=== PATIENT | male | born 1960 | race Caucasian/White ===

== ENCOUNTER 2017-02-13 22:11 | Inpatient (IN) | payer SELFPAY ==
[~2017-02-13] VITALS: Ht 175.3 cm; Wt 62.5 kg
[~2017-02-13 22:11] MED LIST: ADVAIR HFA120 INHALA IH; ADVIL,NUPRIN,M200 MG PO; ALBUTEROL INHALER; ALUPENT14 GM; AMLODIPINE BESYL5 MG PO; CEFTIN500 MG PO; COUMADIN1 MG PO; DOXYCYCLINE HY100 M3 PO; LEVAQUIN750 MG PO; MOTRIN800 MG PO; PREDNISONE10 MG PO; PREDNISONE20 MG PO; PREDNISONE5 MG PO; PREDNISONE50 MG PO; PROAIR HFA8.5 GM IH; SINUS 12-HOUR120 MG PO; SPIRIVA RESPIMAT4 GM IH; TYLENOL WITH C1 EACH PO; VENTOLIN HFA18 GM IH; ZITHROMAX Z-PA250 MG PO; ZITHROMAX250 MG PO
[2017-02-13 22:54] LABS: HEMATOCRIT 42.7 % (38.0-50.0); MCH 30.4 PG (29.0-34.0); MCHC 33.7 G/DL (30.0-36.0); MCV 90.3 FL (86-99); PLATELET COUNT 243 K/uL (156-360); RBC DIS.WIDTH-SD 46.5 % (39-53); RED BLOOD COUNT 4.73 M/uL (4.00-5.50); WHITE BLOOD COUNT 10.2 K/uL (4.1-10.2)
[2017-02-13 22:55] LABS: CARBON DIOXIDE (BICARBONATE) 25.2 MEQ/L (20-31)
[2017-02-13 23:07] LABS: CHLORIDE 102 mEq/L (99-109); POTASSIUM 4.2 mEq/L (3.7-5.4); SODIUM 133 mEq/L (136-147)
[2017-02-13 23:09] LABS: GLUCOSE 103 mg/dL (70-99); INTER. NORMALIZED RATIO 1.2; PTT 27.6 (25-32)
[2017-02-13 23:10] LABS: ANION GAP 9 MEQ/L (2-14)
[2017-02-13 23:11] LABS: TOTAL BILIRUBIN 0.5 mg/dL (0.0-1.0)
[2017-02-13 23:12] LABS: ALKALINE PHOSPHATASE 102 IU/L (3-129)
[2017-02-13 23:13] LABS: GFR ESTIMATE (CALCULATED) > 59 mL/min/
[2017-02-13 23:14] LABS: UREA NITROGEN (BUN) 16 mg/dL (9-23)
[2017-02-13 23:16] LABS: D-DIMER ELISA > 4.00 mg/L FEU (< 0.57); LIPASE 23 U/L (1.0-51.0); TROP-I INTERPRETATION NEGATIVE; TROPONIN-I < 0.01 ng/mL (0.0-0.30)
[2017-02-14] MEDS ORDERED: SPIRIVA RESPIMAT4 GM IH (01:15)
[2017-02-14] MEDS ORDERED: SYMBICORT60 INHALAT IH (01:15)
[2017-02-14 11:31] VITALS: BP 127/80
[2017-02-14 15:43] VITALS: BP 119/68
[2017-02-14 19:36] VITALS: BP 128/66
[2017-02-15 00:06] VITALS: BP 130/67
[2017-02-15 03:22] VITALS: BP 118/74
[2017-02-15 06:02] LABS: EOSINOPHIL (%) 0 % (0-5); IMMATURE GRANULOCYTE (%) 0.4 % (0.0-0.7); INSTRUMENT ABS NEUTROPHIL CT 6.9 K/uL; LYMPHOCYTE COUNT 1.6 K/uL (1.0-2.8); MCH 30.6 PG (29.0-34.0); MCHC 33.3 G/DL (30.0-36.0); MCV 91.8 FL (86-99); MEAN PLAT.VOLUME 9.5 uM^3 (9.0-12.4); MONOCYTE (%) 7.7 % (3-12); MONOCYTE COUNT 0.7 K/uL (0-0.8); NEUTROPHIL (%) 74.5 % (45-76); NEUTROPHIL COUNT 6.9 K/uL (1.8-6.4); PLATELET COUNT 263 K/uL (156-360); RBC DIS.WIDTH-CV 14.3 % (11.8-14.6); RBC DIS.WIDTH-SD 48.5 % (39-53); RED BLOOD COUNT 4.25 M/uL (4.00-5.50); WHITE BLOOD COUNT 9.3 K/uL (4.1-10.2)
[2017-02-15 06:22] LABS: ANION GAP 6 MEQ/L (2-14); CHLORIDE 106 MEQ/L (99-109); GFR ESTIMATE (CALCULATED) > 59 mL/min/; GLUCOSE 103 mg/dL (70-99); POTASSIUM 4.4 MEQ/L (3.7-5.4); SAMPLE HEMOLYSIS CHECK 0; SAMPLE ICTERIC CHECK 0; SAMPLE LIPEMIA CHECK 0; SODIUM 137 MEQ/L (136-147); UREA NITROGEN (BUN) 13 mg/dL (9-23)
[2017-02-15 07:42] LABS: INTERNAL CONTROL VALID? YES
[2017-02-15 08:07] VITALS: BP 125/71
[2017-02-15] MEDS ORDERED: LEVOFLOXACIN750 MG PO (11:34)
[2017-02-15] MEDS ORDERED: VENTOLIN HFA18 GM IH (11:34)
[2017-02-15] MEDS ORDERED: SPIRIVA RESPIMAT4 GM IH (11:34)
[2017-02-15] MEDS ORDERED: PREDNISONE20 MG PO (11:34)
[2017-02-15] MEDS ORDERED: SYMBICORT60 INHALAT IH (11:34)
[2017-02-15] MEDS ORDERED: PROVENTIL,2.5 MG/3 M IH (11:47)
[2017-02-15 12:48] VITALS: BP 144/88
== END 2017-02-15 13:25 | disposition home or self-care (01) | DRG 871 ==
LOC: EME → EDBD 22:11 → EME 22:11 → EDOF 02-14 02:55 → 5EAST 02-14 02:55
PROVIDERS: Emergency Medicine; Hospitalist
DX: A41.9 Sepsis, unspecified organism (principal); J69.0 Pneumonitis due to inhalation of food and vomit; J44.1 Chronic obstructive pulmonary disease with (acute) exacerbation; I10 Essential (primary) hypertension; J98.11 Atelectasis; F17.210 Nicotine dependence, cigarettes, uncomplicated; Z83.3 Family history of diabetes mellitus; Z80.0 Family history of malignant neoplasm of digestive organs
CPT/HCPCS: 71020; 71275; 80048; 80053; 82803; 83605; 83690; 83880; 84484; 85025; 85027; 85379; 85610; 85730; 87040; 87070; 87205; 87449; 93005; 94640; 94640 76; 99202; 99281; 99285; J1650; J1885; J1956; J2270; J2930; J7030; J7512

== ENCOUNTER 2017-03-13 17:49 | Inpatient (IN) | payer SELFPAY ==
[~2017-03-13] VITALS: Ht 175.3 cm; Wt 65.2 kg
[~2017-03-13 17:49] MED LIST changes: +LEVOFLOXACIN750 MG PO; +PROVENTIL,2.5 MG/3 M IH; +SYMBICORT60 INHALAT IH
[2017-03-13 18:42] LABS: EOSINOPHIL (%) 0.1 % (0-5); HEMATOCRIT 42.4 % (38.0-50.0); IMMATURE GRANULOCYTE (%) 0.3 % (0.0-0.7); INSTRUMENT ABS NEUTROPHIL CT 10.5 K/uL; MCH 30.8 PG (29.0-34.0); MCV 90.6 FL (86-99); MEAN PLAT.VOLUME 9.3 uM^3 (9.0-12.4); MONOCYTE (%) 7.3 % (3-12); NEUTROPHIL (%) 77.2 % (45-76); NEUTROPHIL COUNT 10.5 K/uL (1.8-6.4); PLATELET COUNT 238 K/uL (156-360); RBC DIS.WIDTH-CV 14.1 % (11.8-14.6); RBC DIS.WIDTH-SD 47.4 % (39-53); RED BLOOD COUNT 4.68 M/uL (4.00-5.50); WHITE BLOOD COUNT 13.6 K/uL (4.1-10.2)
[2017-03-13 19:12] LABS: D-DIMER ELISA 3.25 mg/L FEU (< 0.57)
[2017-03-13 19:24] LABS: CHLORIDE 103 mEq/L (99-109); POTASSIUM 3.8 mEq/L (3.7-5.4); SODIUM 134 mEq/L (136-147)
[2017-03-13 19:25] LABS: GLUCOSE 180 mg/dL (70-99)
[2017-03-13 19:27] LABS: ANION GAP 10 MEQ/L (2-14)
[2017-03-13 19:29] LABS: GFR ESTIMATE (CALCULATED) 56 mL/min/
[2017-03-13 19:30] LABS: UREA NITROGEN (BUN) 29 mg/dL (9-23)
[2017-03-13 19:31] LABS: TROP-I INTERPRETATION NEGATIVE; TROPONIN-I < 0.01 ng/mL (0.0-0.30)
[2017-03-13] MEDS ORDERED: ADVIL,NUPRIN,M200 MG PO (22:53)
[2017-03-13] MEDS ORDERED: PROVENTIL,2.5 MG/3 M IH (22:53)
[2017-03-14] VITALS (7 sets, daily range): BP systolic 103–132; BP diastolic 61–80
[2017-03-14 01:40] LABS: TROP-I INTERPRETATION NEGATIVE; TROPONIN-I < 0.01 ng/mL (0.0-0.30)
[2017-03-14 06:41] LABS: TROP-I INTERPRETATION NEGATIVE; TROPONIN-I < 0.01 ng/mL (0.0-0.30)
[2017-03-14 07:35] LABS: Estimated Average Glucose 128 mg/dL (70-123); HEMOGLOBIN A1c (GLYCOHEMOGLOB) 6.1 % HGB (Below 5.7)
[2017-03-14 09:16] LABS: POINT-OF-CARE METER ID UU14188625
[2017-03-14 12:41] LABS: POINT-OF-CARE METER ID UU14188625
[2017-03-14 21:12] LABS: POINT-OF-CARE METER ID UU14188625
[2017-03-15 03:29] VITALS: BP 105/63
[2017-03-15 07:07] LABS: HEMATOCRIT 40.2 % (38.0-50.0); MCH 31.3 PG (29.0-34.0); MCHC 34.3 G/DL (30.0-36.0); MCV 91.2 FL (86-99); PLATELET COUNT 279 K/uL (156-360); RBC DIS.WIDTH-SD 47.5 % (39-53); RED BLOOD COUNT 4.41 M/uL (4.00-5.50); WHITE BLOOD COUNT 12.6 K/uL (4.1-10.2)
[2017-03-15 07:31] LABS: ANION GAP 6 MEQ/L (2-14); CHLORIDE 108 MEQ/L (99-109); POTASSIUM 4.3 MEQ/L (3.7-5.4); SAMPLE HEMOLYSIS CHECK 0; SAMPLE ICTERIC CHECK 0; SAMPLE LIPEMIA CHECK 0; SODIUM 136 MEQ/L (136-147); UREA NITROGEN (BUN) 17 mg/dL (9-23)
[2017-03-15 07:33] LABS: GFR ESTIMATE (CALCULATED) > 59 mL/min/; GLUCOSE 109 mg/dL (70-99)
[2017-03-15 08:17] VITALS: BP 129/79
[2017-03-15 11:24] VITALS: BP 118/69
[2017-03-15 17:01] VITALS: BP 139/77
[2017-03-15 19:53] VITALS: BP 130/76
[2017-03-15 22:40] VITALS: BP 132/72
[2017-03-16 03:47] VITALS: BP 135/86
[2017-03-16 07:22] LABS: POINT-OF-CARE METER ID UU14174225
[2017-03-16 08:14] VITALS: BP 143/86
[2017-03-16 12:32] LABS: POINT-OF-CARE METER ID UU14188625
[2017-03-16 13:20] VITALS: BP 133/85
[2017-03-16] MEDS ORDERED: LEVAQUIN750 MG PO (14:45)
[2017-03-16] MEDS ORDERED: PREDNISONE10 MG PO (14:45)
[2017-03-16 18:17] LABS: POINT-OF-CARE METER ID UU14188625
== END 2017-03-16 19:02 | disposition home or self-care (01) | DRG 166 ==
LOC: EME 17:49 → 5SOUTH 23:29 → EDOF 23:29 → 5SOUTH 03-14 01:04
PROVIDERS: Hospitalist; Internal Medicine; Physician Assistant
PROC: 0B998ZX Drainage of Lingula Bronchus, Via Natural or Artificial Opening Endoscopic, Diagnostic (ICD-10-PCS; principal; 2017-03-16)
PROC: 0B9J8ZX Drainage of Left Lower Lung Lobe, Via Natural or Artificial Opening Endoscopic, Diagnostic (ICD-10-PCS; principal; 2017-03-16)
DX: J44.0 Chronic obstructive pulmonary disease with (acute) lower respiratory infection (principal); J15.9 Unspecified bacterial pneumonia; N17.9 Acute kidney failure, unspecified; R04.2 Hemoptysis; J98.11 Atelectasis; J44.1 Chronic obstructive pulmonary disease with (acute) exacerbation; I10 Essential (primary) hypertension; R09.02 Hypoxemia; F17.210 Nicotine dependence, cigarettes, uncomplicated; J98.4 Other disorders of lung; Z87.01 Personal history of pneumonia (recurrent); Z79.51 Long term (current) use of inhaled steroids; Z80.0 Family history of malignant neoplasm of digestive organs; Z83.3 Family history of diabetes mellitus
CPT/HCPCS: 71020; 71275; 80048; 80202; 82948; 83036; 83605; 84484; 85025; 85027; 85379; 87040; 87070; 87116; 87205; 87206; 87278; 88108; 93005; 93306; 94640; 94640 76; 94799; 99202; J0692; J0696; J1815; J1885; J2250; J2310; J2920; J2930; J3010; J3370; J7030; J7050

== ENCOUNTER 2017-03-31 09:40 | Emergency (ER) | payer OTHER ==
[2017-03-31 10:00] LABS: EOSINOPHIL COUNT 0.1 K/uL (0-0.3); HEMATOCRIT 44.1 % (38.0-50.0); IMMATURE GRANULOCYTE (%) 0.3 % (0.0-0.7); INSTRUMENT ABS NEUTROPHIL CT 3.4 K/uL; MCH 30.5 PG (29.0-34.0); MCHC 33.1 G/DL (30.0-36.0); MCV 92.3 FL (86-99); MEAN PLAT.VOLUME 9.1 uM^3 (9.0-12.4); MONOCYTE (%) 10.8 % (3-12); MONOCYTE COUNT 0.7 K/uL (0-0.8); NEUTROPHIL (%) 55.2 % (45-76); NEUTROPHIL COUNT 3.4 K/uL (1.8-6.4); PLATELET COUNT 276 K/uL (156-360); RBC DIS.WIDTH-CV 14.2 % (11.8-14.6); RBC DIS.WIDTH-SD 48.8 % (39-53); RED BLOOD COUNT 4.78 M/uL (4.00-5.50); WHITE BLOOD COUNT 6.2 K/uL (4.1-10.2)
[2017-03-31 10:10] LABS: AMYLASE 75 IU/L (1-118); CHLORIDE 104 mEq/L (99-109); POTASSIUM 4.3 mEq/L (3.7-5.4); SODIUM 137 mEq/L (136-147)
[2017-03-31 10:12] LABS: GLUCOSE 136 mg/dL (70-99)
[2017-03-31 10:13] LABS: ANION GAP 8 MEQ/L (2-14)
[2017-03-31 10:15] LABS: SERUM ETHYL ALCOHOL < 10 mg/dL
[2017-03-31 10:16] LABS: GFR ESTIMATE (CALCULATED) > 59 mL/min/
[2017-03-31 10:17] LABS: UREA NITROGEN (BUN) 17 mg/dL (9-23)
[2017-03-31 10:19] LABS: LIPASE 44 U/L (1.0-51.0)
[2017-03-31 11:15] LABS: ADD MIUA? NO; BILIRUBIN NEGATIVE; BLOOD NEGATIVE; COLOR YELLOW ((YELLOW)); GLUCOSE (STRIP) NEGATIVE; KETONES NEGATIVE; LEUKOCYTES NEGATIVE; NITRITE NEGATIVE; PROTEIN (STRIP) NEGATIVE; SPECIFIC GRAVITY 1.014 (1.000-1.030); UCUL ADDED? NO; UROBILINOGEN 0.2 MG/DL (0.2-1.0)
[2017-03-31] MEDS ORDERED: ULTRAM50 MG PO (11:19)
[2017-03-31 11:37] LABS: AMPHETAMINE NEGATIVE (500 ng/mL); BARBITURATES NEGATIVE (200 ng/mL); BENZODIAZEPINES NEGATIVE (150 ng/mL); COCAINE NEGATIVE (150 ng/mL); INTERNAL CONTROLS VALID? YES; METHADONE NEGATIVE (200 ng/mL); METHAMPHETAMINE NEGATIVE (500 ng/mL); OPIATES (MORPHINE) NEGATIVE (100 ng/mL); OXYCODONE NEGATIVE (100 ng/mL); PHENCYCLIDINE NEGATIVE (25 ng/mL); PROPOXYPHENE NEGATIVE (300 ng/mL); THC CANNABINOIDS NEGATIVE (50 ng/mL); TRICYCLIC ANTIDEPRESSANTS NEGATIVE (300 ng/mL)
== END 2017-03-31 11:40 | disposition home or self-care (01) ==
LOC: TRA
PROVIDERS: Emergency Medicine
DX: S16.1XXA Strain of muscle, fascia and tendon at neck level, initial encounter (principal); V64.5XXA Driver of heavy transport vehicle injured in collision with heavy transport vehicle or bus in traffic accident, initial encounter; Z88.0 Allergy status to penicillin
CPT/HCPCS: 72040; 73030; 80048; 81003; 82150; 83690; 85025; 86900; 86901; 99281; 99285; G0480

== ENCOUNTER → 2017-05-19 | Outpatient (CLI) | payer SELFPAY ==
[~2017-05-19] MED LIST changes: +ULTRAM50 MG PO
== END | disposition home or self-care (01) ==
LOC: RAD 10:44
DX: J18.9 Pneumonia, unspecified organism (principal)
CPT/HCPCS: 71020

== ENCOUNTER 2017-08-28 22:47 | Emergency (ER) | payer SELFPAY ==
[~2017-08-28] VITALS: Ht 175.3 cm; Wt 64.6 kg
[2017-08-29] MEDS ORDERED: DOXYCYCLINE MO100 MG PO (01:33)
[2017-08-29] MEDS ORDERED: FIORICET 50-301 EAC1 PO (01:33)
[2017-08-29] MEDS ORDERED: TAMIFLU75 MG PO (01:33)
[2017-08-29 02:17] VITALS: BP 144/85
== END 2017-08-29 02:21 | disposition home or self-care (01) ==
LOC: EME 22:47 → RME 22:47
PROVIDERS: Physician Assistant
DX: J18.9 Pneumonia, unspecified organism (principal); B34.9 Viral infection, unspecified; J44.0 Chronic obstructive pulmonary disease with (acute) lower respiratory infection; F17.200 Nicotine dependence, unspecified, uncomplicated; I10 Essential (primary) hypertension; Z88.0 Allergy status to penicillin
CPT/HCPCS: 71020; 87502; 99281; 99285; J0696; J1885; J7030

== ENCOUNTER → 2017-10-18 | Outpatient (CLI) | payer SELFPAY ==
[~2017-10-18] MED LIST changes: +DOXYCYCLINE MO100 MG PO; +FIORICET 50-301 EAC1 PO; +TAMIFLU75 MG PO
== END | disposition home or self-care (01) ==
LOC: RAD 15:18
DX: R91.8 Other nonspecific abnormal finding of lung field (principal)
CPT/HCPCS: 71046

== ENCOUNTER → 2017-11-18 | Outpatient (CLI) | payer SELFPAY | END | disposition home or self-care (01) | LOC: RAD 11-11 16:30 | DX: J43.9 Emphysema, unspecified (principal); F17.200 Nicotine dependence, unspecified, uncomplicated; Z88.0 Allergy status to penicillin | CPT/HCPCS: 71260 ==

== ENCOUNTER → 2018-01-24 | Outpatient (CLI) | payer SELFPAY | END | disposition home or self-care (01) | LOC: RAD 13:26 | DX: M19.011 Primary osteoarthritis, right shoulder (principal); M89.9 Disorder of bone, unspecified | CPT/HCPCS: 73030 ==

== ENCOUNTER 2018-04-30 10:06 | Emergency (ER) | payer SELFPAY ==
[~2018-04-30] VITALS: Ht 175.3 cm; Wt 62.7 kg
[2018-04-30] MEDS ORDERED: ZITHROMAX500 MG PO (12:29)
[2018-04-30] MEDS ORDERED: VENTOLIN HFA18 GM IH (12:29)
[2018-04-30] MEDS ORDERED: FLONASE16 G1 BOTH NARES (12:29)
[2018-04-30] MEDS ORDERED: PREDNISONE20 MG PO (12:29)
[2018-04-30 12:45] VITALS: BP 155/108
== END 2018-04-30 12:42 | disposition home or self-care (01) ==
LOC: EME 10:06
DX: J02.0 Streptococcal pharyngitis (principal); J44.9 Chronic obstructive pulmonary disease, unspecified; I10 Essential (primary) hypertension; E11.9 Type 2 diabetes mellitus without complications; F17.200 Nicotine dependence, unspecified, uncomplicated; Z88.0 Allergy status to penicillin
CPT/HCPCS: 71046; 87651 90; 94640; 94799; 99281; 99283